=== PATIENT | female | born 1955 | race Caucasian/White ===

== ENCOUNTER → 2021-07-26 | Outpatient (CLI) | payer MEDICARE, OTHER ==
[~2021-07-26] MED LIST: ACET325 PO; AMOCLA875 PO; ASCO500 PO; ASPI325 PO; ASPI81CH PO; ASPI81EC PO; ATOR80 PO; BORAGE PO; CARV6.25 PO; CHOL10002; CITA20; CITA20 PO; CLOP75 PO; DAILY MULTIPLE1 EACH; DHA OMEGA; DOXY100 PO; ERGO400 PO; ESTROGEN BALANCE; ESTROGEN BALANCE PO; FURO20 PO; GLUCHON PO; Humalog100 UNIT/3 SQ; Humulin 70-30 V10 ML; IBUP400 PO; INSLI100I; INSR10I SC; INSULANPEN; INSULANPEN SQ; INSULIN NOVALOG; INSULIN PUMP; LISI5 PO; LORA1 PO; LORA2 PO; LOSA25; LOSA25 PO; MAGNESIUM ASPARTATE; MAGNESIUM MALATE PO; MELA3 PO; METO2.5 PO; METO25ER PO; METO50 PO; MIRT30 PO; Naprosyn500 MG PO; OXYACE5T PO; POTA10T PO; PRAV20 PO; PROBIOTIC; PROM25 PO; SELENIUM; TOCO400 PO; TRAZ50 PO; UBID10; UBID10 PO; Ultram50 MG PO; VITAMIN B COMPLEX PO; VITAMIN D3; VITNEPH PO; Vitamin C1000 M1; WARF2 PO; Zofran Odt4 MG SL; [UNRECOGNIZED DRUG - OTHER]; [UNRECOGNIZED DRUG - OTHER] PO
== END ==
LOC: LAB SHORT 10:09
DX: R30.0 Dysuria (principal)
CPT/HCPCS: 87077; 87086; 87186

== ENCOUNTER → 2021-11-15 | Outpatient (CLI) | payer MEDICARE, OTHER | LOC: LAB SHORT 08:02 | DX: R30.0 Dysuria (principal) | CPT/HCPCS: 87086 ==

== ENCOUNTER → 2021-11-28 | Outpatient (CLI) | payer MEDICARE, OTHER | LOC: LAB SHORT 18:41 | DX: N39.0 Urinary tract infection, site not specified (principal) | CPT/HCPCS: 87077; 87086; 87186 ==

== ENCOUNTER 2022-04-07 07:05 | Emergency (ER) | payer MEDICARE, OTHER ==
[~2022-04-07] VITALS: Ht 160 cm; Wt 65.8 kg
== END 2022-04-07 09:44 | disposition home or self-care (01) ==
LOC: ER 07:05
DX: S30.0XXA Contusion of lower back and pelvis, initial encounter (principal); E10.9 Type 1 diabetes mellitus without complications; W19.XXXA Unspecified fall, initial encounter; Y92.9 Unspecified place or not applicable; Z79.82 Long term (current) use of aspirin; Z79.899 Other long term (current) drug therapy; Z79.4 Long term (current) use of insulin; Z95.1 Presence of aortocoronary bypass graft
CPT/HCPCS: 99283

== ENCOUNTER → 2023-02-07 | Outpatient (CLI) | payer MEDICARE, OTHER | END | disposition home or self-care (01) | LOC: LAB 18:50 → LAB SHORT 18:50 | DX: R30.0 Dysuria (principal) | CPT/HCPCS: 87077; 87086; 87186 ==

== ENCOUNTER → 2023-03-02 | Outpatient (CLI) | payer MEDICARE, OTHER | END | disposition home or self-care (01) | LOC: LAB 08:08 → LAB SHORT 08:08 | DX: R30.0 Dysuria (principal) | CPT/HCPCS: 87086 ==

== ENCOUNTER → 2023-03-02 | Outpatient (CLI) | payer MEDICARE, OTHER ==
[2023-03-02 11:30] LABS: Campylobacter Sp Not Detected (NOT DETECT)
[2023-03-02 11:31] LABS: Adenovirus F 40/41 Not Detected (NOT DETECT); Astrovirus Not Detected (NOT DETECT); Cryptosporidium Not Detected (NOT DETECT); Cyclospora Cayetanensis Not Detected (NOT DETECT); E. Coli O157 Not Detected (NOT DETECT); Entamoeba Histolytica Not Detected (NOT DETECT); Enteroaggregative E. coli-EAEC Not Detected (NOT DETECT); Enteropathogenic E. coli-EPEC Not Detected (NOT DETECT); Enterotoxigenic E. coli-ETEC Not Detected (NOT DETECT); Giardia Lamblia Not Detected (NOT DETECT); Norovirus GI/GII Not Detected (NOT DETECT); Plesiomonas Shigelloides Not Detected (NOT DETECT); Rotavirus A Not Detected (NOT DETECT); Salmonella Sp Not Detected (NOT DETECT); Sapovirus Not Detected (NOT DETECT); Shiga Toxin-prod E. coli-STEC Not Detected (NOT DETECT); Shigella/Enteroin E. coli-EIEC Not Detected (NOT DETECT); Vibrio Cholerae Not Detected (NOT DETECT); Vibrio Sp Not Detected (NOT DETECT); Yersinia Enterocolitica Not Detected (NOT DETECT)
== END | disposition home or self-care (01) ==
LOC: LAB SHORT 08:08 → LAB 08:08
PROVIDERS: Nurse Practitioner Family
DX: R19.7 Diarrhea, unspecified (principal)
CPT/HCPCS: 87507; 89055

== ENCOUNTER → 2023-05-04 | Outpatient (CLI) | payer MEDICARE, OTHER | END | disposition home or self-care (01) | LOC: LAB 09:41 → LAB SHORT 09:41 | DX: R30.0 Dysuria (principal) | CPT/HCPCS: 87077; 87086; 87186 ==

== ENCOUNTER → 2023-06-11 | Outpatient (CLI) | payer MEDICARE, OTHER | END | disposition home or self-care (01) | LOC: LAB SHORT 08:09 → LAB 08:09 | DX: R30.0 Dysuria (principal) | CPT/HCPCS: 87077; 87086; 87186 ==

== ENCOUNTER → 2023-09-24 | Outpatient (CLI) | payer MEDICARE, OTHER | END | disposition home or self-care (01) | LOC: LAB 08:08 → LAB SHORT 08:08 | DX: R30.0 Dysuria (principal) | CPT/HCPCS: 87086 ==

== ENCOUNTER → 2024-04-19 | Outpatient (CLI) | payer MEDICARE, OTHER | END | disposition home or self-care (01) | LOC: LAB SHORT 08:50 → LAB 08:50 | DX: R30.0 Dysuria (principal) | CPT/HCPCS: 87077; 87086; 87186 ==